=== PATIENT | male | born 1965 | race African-American/Black ===

== ENCOUNTER 2018-04-07 11:33 | Inpatient (IN) | payer OTHER ==
[~2018-04-07] VITALS: Ht 175.3 cm; Wt 78.2 kg
--- NOTE | ~2018-04-07 | CON ---
[place], [place] REPORT OF CONSULTATION NAME: YURI CARY UNIT #: [id number] ROOM: 424 DOCTOR: KYLER GOLD DPM BIRTHDATE: [birth year] DATE: 04/09/18 ADDENDUM TO RESIDENT CONSULT: I reviewed with the resident and I am in agreement. KYLER GOLD DPM CM:CONSTR:REPORT OF CONSULTATION 1056 06/21/18 1057 TREVER HUERTA MIS.R
--- NOTE | ~2018-04-07 | EKG ---
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
[2018-04-07 12:40] VITALS: BP 137/83
--- NOTE | 2018-04-07 12:40 | NUR ---
A 53, admitted to , under the services of ODILIA Alberts DO with a diagnosis of ALCHOHOL & COCAINE WITHDRAWL. Chief complaint is ALCOHOL AND COCAINE WITHDRAWL. Patient arrived via ambulatory from [place]. Monitor applied. Initial assessment completed. Vital signs taken and recorded. ODILIA ALBERTS DO notified of admission to the unit. Orders received. See assessment for past medical history, medications and allergies. Patient and/or family oriented to unit. [facility]. Clothing/patient valuable form completed. BRISEIDA MILLIGAN
--- NOTE | 2018-04-07 12:48 | NUR ---
PATIENT MEETS [facility]. CIWA=15,CINA=16. PATENT WANTS RESIDENTIAL TREATMENT AT [facility] IN [place]. [place] STAFF WILL WORK ON REFERRAL AND FOLLOW UP WITH PATIENT. CASSIDY NORTON B.A. HOT TAMALE WORKER
[2018-04-07 12:51] VITALS: BP 137/83
--- NOTE | 2018-04-07 12:58 | NUR ---
[place] R[facility]TE DRIVER IN TO SEE PATIENT AT THIS TIME.
[2018-04-07 13:55] LABS: BASO % 0.5 % (0.0-1.0); EOS # 0.1 10*3/uL (0.0-0.4); EOS % 1.2 % (1.0-4.0); HEMATOCRIT 44.5 % (42.0-52.0); HEMOGLOBIN 14.4 g/dl (14.0-18.0); LYMPH # 1.5 10*3/uL (1.3-4.4); LYMPH % 35.8 % (27.0-41.0); MEAN CELL VOLUME 93.9 fl (80.0-94.0); MEAN CORPUSCULAR HGB 30.4 pg (27.0-31.0); MEAN CORPUSCULAR HGB CONC 32.4 g/dl (33.0-37.0); MEAN PLATELET VOLUME 10.8 fl (9.6-12.3); MONO # 0.6 10*3/uL (0.1-1.0); MONO % 13.7 % (3.0-9.0); NEUT % 48.1 % (47.0-73.0); PLATELET COUNT AUTOMATED 128 10*3/uL (130-400); RED BLOOD COUNT 4.74 10*6/uL (4.50-5.90); RED CELL DISTRI WIDTH 14.5 % (0-14.5); WHITE BLOOD COUNT 4.2 10*3/uL (4.8-10.8)
[2018-04-07 14:12] LABS: ALBUMIN 3.5 gm/dl (3.1-4.5); ALKALINE PHOSPHATASE 84 U/L (45-117); BUN 16 mg/dl (7-24); CHLORIDE 107 mmol/L (98-107); CREATININE 1.02 mg/dL (0.70-1.30); POTASSIUM 4.1 mmol/L (3.5-5.1); SGOT/AST 19 IU/L (3-35); SGPT/ALT 24 U/L (12-78); SODIUM 139 mmol/L (136-145); TOTAL PROTEIN 6.9 gm/dL (6.4-8.2)
[2018-04-07 14:13] LABS: ETHYL ALCOHOL < 3.0 mg/dl (<3)
[2018-04-07 14:21] LABS: FREE T4 1.1 ng/dl (0.76-1.46); THYROID STIM HORMONE (HS) 0.87 uIU/ml (0.358-4.75)
--- NOTE | 2018-04-07 14:28 | NUR ---
ROBAXIN AND VISTARIL ADMINISTERED FOR WITHDRAWL SYMPTOMS OF MUSCLE ACHES AND ANXIETY. NO TREMORS NOTED AT THIS TIME. WILL MONITOR.
[2018-04-07 14:34] LABS: BILIRUBIN NEGATIVE (NEGATIVE); BLOOD NEGATIVE (NEGATIVE); CLARITY CLEAR (CLEAR); COLOR YELLOW (YELLOW); GLUCOSE NEGATIVE (NEGATIVE); KETONE NEGATIVE (NEGATIVE); LEUKO ESTERASE NEGATIVE (NEGATIVE); NITRITE NEGATIVE (NEGATIVE); PH 5.5 (5.0-9.0); SPECIFIC GRAVITY 1.025 (1.005-1.030); UROBILINOGEN 0.2 E.U./dl (0.2-1.0)
[2018-04-07 14:42] LABS: URINE AMPHETAMINES < 1000 (1000ng/ml); URINE BARBITURATES < 200 (200ng/ml); URINE BENZODIAZEPINES < 200 (200ng/ml); URINE CANNABINOIDS (THC) < 50 (50ng/ml); URINE COCAINE > 300 (300ng/ml); URINE METHADONE < 300 (300ng/ml); URINE OPIATES < 300 (300ng/ml)
[2018-04-07 14:43] LABS: URINE PHENCYCLIDINE < 25 (25ng/ml)
[2018-04-07 14:51] LABS: WBC 0-2 wbc/hpf (0-5)
[2018-04-07 14:52] LABS: BACTERIA TRACE; EPITHELIAL CELLS 0-2
[2018-04-07 15:13] LABS: VITAMIN D, 25-HYDROXY 15.7 ng/mL (30-100)
--- NOTE | 2018-04-07 15:28 | NUR ---
PATIENT RESTING COMFORTABLY IN BED AT THIS TIME TALKING ON THE PHONE. PATIENT HAVING MINIMAL HAND TREMORS AT THIS TIME. WILL CONTINUE TO MONITOR.
[2018-04-07 16:00] VITALS: BP 120/80
[2018-04-07 20:00] VITALS: BP 137/72
--- NOTE | 2018-04-07 20:09 | NUR ---
PATIENT AWAKE/ALERT FOR SHIFT ASSESSMENT. RESPIRATIONS EASY/REG ON RA. MVI BAG INFUSING ORDERED. PLEASANT/COOPERATIVE WITH CARE. NO VOICED COMPLAINTS AT THIS TIME. CALL LIGHT IS IN REACH
[2018-04-08] VITALS: BP 124/76
[2018-04-08 04:00] VITALS: BP 148/88
[2018-04-08 08:00] VITALS: BP 130/78
--- NOTE | 2018-04-08 08:39 | NUR ---
24 HR chart check completed.
--- NOTE | 2018-04-08 09:00 | NUR ---
SITTING AT BEDSIDE EATING. RESPIRATIONS EASY. LUNGS DIMINISHED, CLEAR. PULSE OX 100% RA. NON-PROD COUGH. OFFERED AND EDUCATED REGARDING TEDS, DECLINED. CALL LIGHT WITHIN REACH. NO VOICED COMPLAINTS
--- NOTE | 2018-04-08 09:18 | NUR ---
Patient displaying withdrawal symptoms, including: irritability, anxiousness, restlessness and agitation. Scheduled/PRN medications provided, SEE EMAR. Will continue to monitor medication effectiveness.
--- NOTE | 2018-04-08 11:00 | NUR ---
Patient resting. Responding to scheduled medications with fewer complaints of pain and anxiety.
--- NOTE | 2018-04-08 11:10 | NUR ---
DR RODRIGUEZ PRESENT ON FLOOR TO ASSESS PATIENT AND DISCUSS PLAN OF CARE
[2018-04-08 12:00] VITALS: BP 158/83
--- NOTE | 2018-04-08 12:18 | NUR ---
Patient displaying withdrawal symptoms, including: irritability, anxiousness, restlessness and agitation. Scheduled medications provided, SEE EMAR. Will continue to monitor medication effectiveness.
--- NOTE | 2018-04-08 12:30 | NUR ---
SPOKE WITH DR KIRBY, PODIATRY RESIDENT REGARDING CONSULT. WILL SEE PATIENT TOMORROW
--- NOTE | 2018-04-08 13:10 | NUR ---
SPOKE WITH DR WELCH REGARDING PATIENT REQUESTING NICOTROL INHALE INSTEAD OF PATCH WHICH PATIENT CLAIMS NOT EFFECTIVE
[2018-04-08 16:00] VITALS: BP 138/82
--- NOTE | 2018-04-08 17:00 | NUR ---
Patient resting. Responding to scheduled medications with fewer complaints of pain and anxiety.
[2018-04-08 20:00] VITALS: BP 138/79
--- NOTE | 2018-04-08 21:23 | NUR ---
Patient reports the following symptoms of withdrawal: body aches, leg pain, nausea and cravings. Patient given scheduled/PRN medication to control withdrawal symptoms. Close observation will be maintained.
[2018-04-09] VITALS: BP 151/75
--- NOTE | 2018-04-09 07:53 | NUR ---
24 HR chart check completed.
[2018-04-09 08:00] VITALS: BP 136/82
--- NOTE | 2018-04-09 08:00 | NUR ---
SLEEPING. NO DISTRESS NOTED. RESPIRATIONS EASY. VSS. CALL LIGHT WITHIN REACH. BED ALARM MAINTAINED FOR SAFETY
--- NOTE | 2018-04-09 10:28 | NUR ---
Patient displaying withdrawal symptoms, including: irritability, anxiousness, restlessness and agitation. PATIENT REPORTS FOOT PAIN. Scheduled/PRN medications provided, SEE EMAR. Will continue to monitor medication effectiveness.
--- NOTE | 2018-04-09 11:00 | NUR ---
Patient resting. Responding to scheduled medications with fewer complaints of pain and anxiety.
--- NOTE | 2018-04-09 12:43 | NUR ---
Patient displaying withdrawal symptoms, including: irritability, anxiousness, restlessness and agitation. Scheduled medications provided, SEE EMAR. Will continue to monitor medication effectiveness.
--- NOTE | 2018-04-09 14:00 | NUR ---
Patient resting. Responding to scheduled medications with fewer complaints of pain and anxiety.
[2018-04-09 16:00] VITALS: BP 133/84
[2018-04-09 20:00] VITALS: BP 148/84
--- NOTE | 2018-04-09 22:00 | NUR ---
Patient resting. Responding to scheduled medications with fewer complaints of pain and anxiety.
[2018-04-10] VITALS: BP 156/64
[2018-04-10 06:22] LABS: BASO % 0.1 % (0.0-1.0); EOS # 0.1 10*3/uL (0.0-0.4); EOS % 0.9 % (1.0-4.0); HEMATOCRIT 40.3 % (42.0-52.0); HEMOGLOBIN 13.1 g/dl (14.0-18.0); LYMPH # 1.1 10*3/uL (1.3-4.4); LYMPH % 15.4 % (27.0-41.0); MEAN CELL VOLUME 94.2 fl (80.0-94.0); MEAN CORPUSCULAR HGB 30.6 pg (27.0-31.0); MEAN CORPUSCULAR HGB CONC 32.5 g/dl (33.0-37.0); MEAN PLATELET VOLUME 11.3 fl (9.6-12.3); MONO % 13.8 % (3.0-9.0); NEUT # 4.9 10*3/uL (2.3-7.9); NEUT % 69.5 % (47.0-73.0); PLATELET COUNT AUTOMATED 109 10*3/uL (130-400); RED BLOOD COUNT 4.28 10*6/uL (4.50-5.90); RED CELL DISTRI WIDTH 14.3 % (0-14.5)
[2018-04-10 06:46] LABS: CREATININE 1.04 mg/dL (0.70-1.30)
[2018-04-10 08:00] VITALS: BP 125/62
[2018-04-10 09:18] VITALS: BP 132/80
--- NOTE | 2018-04-10 09:20 | NUR ---
PT C/O TREMORS, MUSCLE ACHES, ANXIETY, AND DIARRHEA. ATIVAN 1 MG PO, ROBAXIN, VISTARIL, AND IMODIUM GIVEN AT THIS TIME. WILL FOLLOW UP FOR EFFECTIVENESS. CALL LIGHT IN REACH.
--- NOTE | 2018-04-10 10:20 | NUR ---
PRN MEDS EFFECTIVE PER PT.
--- NOTE | 2018-04-10 11:10 | NUR ---
PATIENT IS UNABLE TO GO TO [facility] DUE TO NEEDING A HIGHER LEVEL OF CARE DUE TO HIS MEDICAL HISTORY. OR STAFF IS SENDING OUT REFERRALS TO [facility]. [facility] DOES NOT HAVE ANY OPEN BEDS, BUT HE CAN BE PUT ON THEIR WAITING LIST. [facility]FF IS STILL WAITING ON THE OUTCOME FOR [place]. [facility] STAFF WILL FOLLOW UP WITH PATIENT CONCERNING [facility] AFTERCARE PLAN. CASSIDY NORTON B.A. CRIME SCENE TECHNICIAN
[2018-04-10 12:00] VITALS: BP 128/78
--- NOTE | 2018-04-10 14:03 | NUR ---
PATIENT WAS PUT ON THE WAITING LIST AT [facility]. PATIENT WILL PROVIDE PATIENT WITH [facility]S CONTACT INFORMATION. [facility] STAFF WILL ALSO PATIENT WITH OTHER OUTPATIENT RESOURCES IN HIS LOCAL AREA. PATIENT WILL NEED TRANSPORTATION. [facility] STAFF WILL CONTACT PATIENT'S INSURANCE FOR TRANSPORATION. PATIENT AGREES AND UNDERSTANDS HIS AFTERCARE PLAN. CASSIDY NORTON B.A. PAPER COATER
--- NOTE | 2018-04-10 15:03 | NUR ---
Discharge instructions reviewed with patient/family. Patient receptive and verbalizes understanding. Follow-up care arranged. Written instructions given to patient/family. BRISEIDA NEELY
== END 2018-04-10 15:03 | disposition home or self-care (01) | DRG 897 ==
LOC: 4E 11:33
PROVIDERS: Registered Nurse; ADMIT Internal Medicine
PROC: 0HBRXZZ Excision of Toe Nail, External Approach (ICD-10-PCS; principal; 2018-04-10)
PROC: 0HBRXZZ Excision of Toe Nail, External Approach (ICD-10-PCS; 2018-04-10)
PROC: 0HBRXZZ Excision of Toe Nail, External Approach (ICD-10-PCS; 2018-04-10)
PROC: 0HBRXZZ Excision of Toe Nail, External Approach (ICD-10-PCS; 2018-04-10)
PROC: 0HBRXZZ Excision of Toe Nail, External Approach (ICD-10-PCS; 2018-04-10)
PROC: 0HBRXZZ Excision of Toe Nail, External Approach (ICD-10-PCS; 2018-04-10)
PROC: 0HBRXZZ Excision of Toe Nail, External Approach (ICD-10-PCS; 2018-04-10)
PROC: 0HBRXZZ Excision of Toe Nail, External Approach (ICD-10-PCS; 2018-04-10)
PROC: 0HBRXZZ Excision of Toe Nail, External Approach (ICD-10-PCS; 2018-04-10)
PROC: 0HBRXZZ Excision of Toe Nail, External Approach (ICD-10-PCS; 2018-04-10)
DX: F10.232 Alcohol dependence with withdrawal with perceptual disturbance (principal); F41.9 Anxiety disorder, unspecified; F14.10 Cocaine abuse, uncomplicated; E11.9 Type 2 diabetes mellitus without complications; B35.1 Tinea unguium; M20.42 Other hammer toe(s) (acquired), left foot; F20.9 Schizophrenia, unspecified; F32.9 Major depressive disorder, single episode, unspecified; Z72.0 Tobacco use; Z82.49 Family history of ischemic heart disease and other diseases of the circulatory system; Z88.0 Allergy status to penicillin